=== PATIENT | female | born 1960 | race Caucasian/White ===

== ENCOUNTER 2016-03-08 08:50 | Emergency (ER) | payer OTHER ==
[~2016-03-08] VITALS: Ht 154.9 cm; Wt 73.5 kg
[~2016-03-08 08:50] MED LIST: AMOXICILLIN500 M3 PO; ESCITALOPRAM20 MG PO; FLEXERIL10 MG PO; HYDROCODONE/ACE1 TA1 PO; NATURAL IRON65 MG PO; ONDANSETRON ODT4 MG PO; PANTOPRAZOLE SO40 M1 PO; PANTOPRAZOLE SO40 MG PO; PERCOCET 325 MG1 TA2 PO; REGLAN10 MG PO; TUMS500 MG PO
--- NOTE | 2016-03-08 09:29 | ED DYSPNEA/ASTHMA COMPLAINT ---
History of Present Illness General Chief Complaint: Upper Respiratory Sx/Fever Stated Complaint: COUGH X 2WKS Source: patient Exam Limitations: no limitations Vital Signs & Intake/Output Vital Signs & Intake/Output Vital Signs Date Time Temp Pulse Resp B/P Pulse O2 O2 Flow FiO2 Ox Delivery Rate 03/08 1114 97.0 88 18 122/78 98 Room Air 03/08 1011 97 03/08 0950 95 Room Air 03/08 0853 96.8 100 18 145/94 98 Room Air Allergies Coded Allergies: NO KNOWN ALLERGIES (07/14/11) Reconcile Medications Albuterol Sulfate (Proair Hfa) 90 MCG HFA.AER.AD 2 PUF INH Q4-6 PRN PRN BRONCHITIS Albuterol Sulfate 1.25 MG/3 ML VIAL.NEB 1 Vial INH/ANTONY Q4-6 PRN BRONCHITIS Azithromycin 250 MG TABLET 1 DP PO AD BRONCHITIS 2 the first day followed by 1 for days 2-5 Escitalopram Oxalate 20 MG TAB 1 TAB PO DAILY DEPRESSION (Reported) Methylprednisolone. (Medrol) 4 MG TAB.DS.PK 1 DP PO AD BRONCHITIS 6 on day 1 then reduce by one tablet daily until gone [NEBULIZER MACHINE] 1 U MISCELL 1 U MC PRN PRN BRONCHITIS Pantoprazole Sodium 40 MG TABLET. 1 TAB PO BID HEARTBURN (Reported) Triage Note: 55 Y/0 FEMALE C/O COUGH X 3 WEEKS; NO RELIEF DESPITE MEDICATIONS HER PCP PRESCRIBED. SPEAKING CLEARLY WITH NO RESP DISTRESS NOTED, SAT 96% RA Triage Nurses Notes Reviewed? yes HPI: this patient is a 55-year-old female who presented to the emergency department today for evaluation of persistent cough 1 week. The patient reported that she is coughing up green phlegm. She reported that the cough seems to be getting worse. She reported that it is worse with exertion. She denied any chest pain or trouble breathing. The patient denied any fevers or chills. She reported that she does have vomiting at baseline, but reported that over the last week the vomiting has increased approximately 3 times a day which is nonbloody. The patient denied any nausea or abdominal pain. She denied any chest pain, headaches, visual changes, jaw pain, arm pain, numbness or tingling her extremities, or any coryza symptoms. (GUICHO RAZO,GIUSEPPE) Past History Travel History Traveled to [place] past 21 day No Medical History Any Pertinent Medical History? see below for history Neurological: NONE EENT: NONE Cardiovascular: NONE Respiratory: NONE Gastrointestinal: GERD, hiatal hernia, pacheco's esophagitis. Hepatic: NONE Renal: NONE Musculoskeletal: NONE Psychiatric: anxiety, substance abuse, depression Endocrine: NONE Blood Disorders: anemia Cancer(s): NONE COOKER CASING/Reproductive: NONE History of MRSA: No History of VRE: No History of CDIFF: No Surgical History Surgical History: cricopharyngeal myotomy Psychosocial History Who do you live with Sister What is your primary language Sri Lankan Tobacco Use: Never used Family History Hx Contributory? No (GIUSEPPE LINDO PA-C) Review of Systems Review of Systems Constitutional: Reports: no symptoms. EENTM: Reports: no symptoms. Respiratory: Reports: see HPI. Cardiovascular: Reports: no symptoms. GI: Reports: no symptoms. Genitourinary: Reports: see HPI. Musculoskeletal: Reports: no symptoms. Skin: Reports: no symptoms. Neurological/Psychological: Reports: no symptoms. All Other Systems: Reviewed and Negative (GIUSEPPE LINDO PA-C) Physical Exam Physical Exam Respiratory: SCATTERED EXPIRATORY WHEEZES AND RHONCHI HEARD THROUGHOUT THE UPPER LUNG NOLAN. nO RALES APPRECIATED. nO RESPIRATORY DISTRESS. sPEAKING IN FULL SENTENCES Comments: Well-developed well-nourished person in no acute distress HEENT: Normal EENT exam, head normocephalic, moist mucous membranes. Pupils equally round and reactive to light. Neck: Supple, no lymphadenopathy Back: Antalgic gait Cardiovascular: Regular rate and rhythm with no murmurs, rubs, or gallops Abdomen: Soft, nontender, nondistended Extremity: Normal and equal pulses. Neuro: Alert oriented x3, cranial nerves II through XII grossly intact. Skin: No appreciable rash on exposed skin, skin is warm and dry. Psych: Mood and affect is normal Core Measures ACS in differential dx? Yes Severe Sepsis Present: No Septic Shock Present: No (GIUSEPPE LINDO PA-C) Progress Differential Diagnosis: asthma, AMI, bronchitis, costochondritis, CHF, COPD, musculoskeletal pain, pericarditis, pulmonary embolism, pneumonia, pneumothorax, unstable angina, INFLUENZA, VIRAL SYNDROME, GASTROENTERITIS, gerd Plan of Care: Orders Procedure Date/time Status RAPID VIRAL INFLUENZA A 03/08 947 Complete Diagnostic Imaging: Viewed by Me: Radiology Read. Discussed w/RAD: Radiology Read. CXR Impression: PATIENT: NYDIA HAIR PRESENT AGE: 55 PATIENT ACCOUNT NO: [id number] : 58 LOCATION: [facility] ORDERING PHYSICIAN: GIUSEPPE LINDO PA-C SERVICE DATE: 03/08/16 EXAM TYPE: RAD - XRY-CHEST XRAY, PA AND LATERAL EXAMINATION: XR CHEST CLINICAL INFORMATION: Assess for pneumonia. Cough and shortness of breath. COMPARISON: None. TECHNIQUE: PA and lateral views of the chest were obtained. FINDINGS: The lung nolan are hypoexpanded bilaterally. No focal consolidation is demonstrated. The cardiac silhouette is normal in size. The aortic arch is unfolded. No pleural effusions or pneumothoraces are demonstrated. The central pulmonary vasculature appears normal. There is a dextroscoliosis in the thoracic spine. There are multilevel degenerative changes. IMPRESSION: 1. There are no acute cardiopulmonary findings. DICTATED BY: ELVA ARZOLA MD DATE/TIME DICTATED:03/08/16999 CARPET INSTALLATION SPECIALIST:DAVID DATE/TIME TRANSCRIBED:03/08/16999 CONFIDENTIAL, DO NOT COPY WITHOUT APPROPRIATE AUTHORIZATION. <Electronically signed in Other Vendor System> SIGNED BY: ELVA ARZOLA MD 03/08/16 1007 Initial ED EKG: none (GUICHO RAZO,GIUSEPPE) Departure Departure Disposition: HOME OR SELF CARE Condition: Stable Clinical Impression Primary Impression: Bronchitis Referrals: FERMIN QUINN,ALONZO Garcia (PCP/Family) Additional Instructions: Take antibiotic as prescribed and for its full duration. Take Medrol Dosepak as prescribed. Use nebulizer machine as directed. Use inhaler as directed. Please follow-up with your primary care physician. Return for any worsening symptoms or concerns. Departure Forms: Customer Survey General Discharge Information Prescriptions: Current Visit Scripts Azithromycin 1 DP PO AD #6 TAB 2 the first day followed by 1 for days 2-5 Methylprednisolone. (Medrol) 1 DP PO AD #1 DP 6 on day 1 then reduce by one tablet daily until gone Albuterol Sulfate (Proair Hfa) 2 PUF INH Q4-6 PRN PRN BRONCHITIS #1 INHAL Albuterol Sulfate 1 Vial INH/ANTONY Q4-6 PRN BRONCHITIS #150 ML [NEBULIZER MACHINE] 1 U MC PRN PRN BRONCHITIS #1 U (GUICHO RAZO,GIUSEPPE) PA/HAND BINDERY ASSEMBLY WORKER Co-Sign Statement Statement: ED Attending supervision documentation- [] I saw and evaluated the patient. I have also reviewed all the pertinent lab results and diagnostic results. I agree with the findings and the plan of care as documented in the PA's/HAND BINDERY ASSEMBLY WORKER's documentation. [x] I have reviewed the ED Record and agree with the PA's/HAND BINDERY ASSEMBLY WORKER's documentation. [] Additions or exceptions (if any) to the PAs/HAND BINDERY ASSEMBLY WORKER's note and plan are summarized below: [] (WICHO QUINN,STANLEY) Critical Care Note Critical Care Note Critical Care Time: non-applicable (GUICHO RAZO,GIUSEPPE)
--- NOTE | 2016-03-08 10:07 | RADIOLOGY REPORT ---
EXAMINATION: XR CHEST CLINICAL INFORMATION: Assess for pneumonia. Cough and shortness of breath. COMPARISON: None. TECHNIQUE: PA and lateral views of the chest were obtained. FINDINGS: The lung sommers are hypoexpanded bilaterally. No focal consolidation is demonstrated. The cardiac silhouette is normal in size. The aortic arch is unfolded. No pleural effusions or pneumothoraces are demonstrated. The central pulmonary vasculature appears normal. There is a dextroscoliosis in the thoracic spine. There are multilevel degenerative changes. IMPRESSION: 1. There are no acute cardiopulmonary findings.
[2016-03-08 11:14] VITALS: BP 122/78
[2016-03-08] MEDS ORDERED: AZITHROMYCIN250 M1 PO (11:30)
[2016-03-08] MEDS ORDERED: PROAIR HFA8.5 GM INH (11:30)
[2016-03-08] MEDS ORDERED: NEBULIZER MACHINE MC (11:30)
[2016-03-08] MEDS ORDERED: ALBUTEROL1.25 MG/1 INH/SOL (11:30)
[2016-03-08] MEDS ORDERED: MEDROL4 M2 PO (11:30)
== END 2016-03-08 11:41 ==
LOC: ERH 08:50
DX: J40 Bronchitis, not specified as acute or chronic (principal)
CPT/HCPCS: 1263; 87804; 87804-59; 96372; J2930

== ENCOUNTER 2017-02-19 12:12 | Emergency (ER) | payer OTHER ==
[~2017-02-19] VITALS: Ht 154.9 cm; Wt 71.7 kg
[~2017-02-19 12:12] MED LIST changes: +ALBUTEROL1.25 MG/1 INH/SOL; +AZITHROMYCIN250 M1 PO; +ESCITALOPRAM OX10 MG PO; -ESCITALOPRAM20 MG PO; +MEDROL4 M2 PO; +NEBULIZER MACHINE MC; +PROAIR HFA8.5 GM INH
--- NOTE | 2017-02-19 12:38 | ED GI/GU/ABDOMINAL COMPLAINT ---
History of Present Illness General Chief Complaint: Abdominal Pain/Flank Pain Stated Complaint: ABD PAIN X 3 MONTHS Source: patient, old records Exam Limitations: no limitations Vital Signs & Intake/Output Vital Signs & Intake/Output Vital Signs Date Time Temp Pulse Resp B/P B/P Pulse O2 O2 Flow FiO2 Mean Ox Delivery Rate 02/19 1401 97.9 77 20 116/80 97 Room Air 02/19 1217 97.3 83 20 114/79 98 Room Air Allergies Coded Allergies: NO KNOWN ALLERGIES (07/14/11) Reconcile Medications Alendronate Sodium 35 MG TABLET 1 TAB PO QW BONE (Reported) Atorvastatin Calcium 10 MG TABLET 1 TAB PO DAILY CHOLESTEROL (Reported) Escitalopram Oxalate 10 MG TABLET 1 TAB PO DAILY MENTAL HEALTH (Reported) Fenofibrate Nanocrystallized (Fenofibrate) 145 MG TABLET 1 TAB PO DAILY CHOLESTEROL (Reported) Pantoprazole Sodium 40 MG TABLET.DR 1 TAB PO BID HEARTBURN (Reported) Triage Note: C/O ABDOMINAL CRAMPS X 3 MONTHS. STATES VOMITING X 1 AT NIGHT BUT HAS GERD AND ASSOCIATED THAT WITH THE GERD. STATES DIARRHEA JUST ABOUT EVERYDAY ALSO. DENIES VAGINAL BLEEDING Triage Nurses Notes Reviewed? yes LMP (ages 10-50): 5 YEARS AGO ? N Is pt currently ? No Onset: Gradual Duration: intermittent, X 3 MONTHS Timing: recent history Quality/Severity: aching, cramping Severity Numbers: 4 Location: left lower quadrant, right lower quadrant Radiation: no radiation Activities at Onset: none Prior Abdominal Problems: similar symptoms No Modifying Factors: none Associated Symptoms: DENIES HPI: 56-year-old female history of GERD presents complaining of bilateral lower quadrant abdominal cramping for the past 3 months. Patient states that she intermittently has vomiting at nighttime which she should be Luther her reflux which she's had in the past associated with loose bowel movements intermittently. She states she had a normal bowel movement yesterday, throughout triage note. She states the pain is intermittent in nature, she went to the women[facility] health clinic who advised that she may need an ultrasound however is not follow-up. She denies any pain at this time no nausea no urinary urgency frequency dysuria. Her last menstrual cycles about 5 years ago she denies any abnormal bleeding or discharge. She is not taken anything for her symptoms. She denies anything triggering these episodes of pain there is no symptoms associated with food eating or drinking. The patient states she has been putting heating pads on with improvement in her symptoms (Nestor Roper) Past History Travel History Traveled to [place] past 21 day No Medical History Any Pertinent Medical History? see below for history Neurological: NONE EENT: NONE Cardiovascular: NONE Respiratory: NONE Gastrointestinal: GERD, hiatal hernia, pacheco's esophagitis. Hepatic: NONE Renal: NONE Musculoskeletal: NONE Psychiatric: anxiety, substance abuse, depression Endocrine: NONE Blood Disorders: anemia Cancer(s): NONE SPINNER IRON/Reproductive: NONE History of MRSA: No History of VRE: No History of CDIFF: No Surgical History Surgical History: cricopharyngeal myotomy Psychosocial History Who do you live with Sister What is your primary language Japanese Tobacco Use: Never used ETOH Use: denies use Illicit Drug Use: denies illicit drug use Family History Hx Contributory? No (Nestor Roper) Review of Systems Review of Systems Constitutional: Reports: see HPI. Comments Review of systems: See HPI, All other systems negative. Constitutional, no chills no fever, HEENT: no sore throat no congestion, no ear pain Cardiovascular: No chest pain , no palpitation Skin: no rashes, no change in skin Respiratory: No dyspnea no cough no sputum GI: SEE HPI : No dysuria No hematuria, no frequency Muscle skeletal: No joint pain, no back pain Neurologic: , no headache Psych: No stress Heme/endocrine: No bruising Immunology: No lymphadenopathy (Nestor Roper) Physical Exam Physical Exam General Appearance: well developed/nourished, alert, awake Gastrointestinal: normal bowel sounds, soft, non-tender Comments: Well-developed well-nourished person in no acute distress HEENT: Normal EENT exam; PERRL, EOMI, HEAD is atraumatic. moist mucous membranes. Neck: Supple, normal range of motion Back: Nontender, no CVA tenderness. Full range of motion Cardiovascular: Regular rate and rhythms no murmur Respiratory:No respiratory distress. Patient speaking in full complete sentences. Breath sounds clear to auscultation bilaterally: NO W/R/R Abdomen: Soft, nontender nondistended, no appreciable organomegaly. Normal bowel sounds. No rebound/guarding, No appreciable enlargement of the abdominal aorta, No ascites. Extremity: No edema, full range of motion of extremities Neuro: Alert oriented x3, motor sensory normal, There were no obvious focal neurologic abnormalities. Skin: No appreciable rash on exposed skin, skin is warm and dry. Psych: Mood and affect is normal, memory and judgment is normal. Core Measures ACS in differential dx? No Sepsis Present: No Sepsis Focused Exam Completed? No (Jaylene CHUNG,Nestor) Progress Differential Diagnosis: appendicitis, biliary colic, bowel obstruction, colon cancer, cholecystitis, diverticulitis, gastritis, hepatitis, inflamm bowel dis, ovarian cyst, peptic ulcer, PUD/GERD, perforated viscous, UTI/pyelo, MALIGNANCY Plan of Care: Orders Procedure Date/time Status Add-on Test (ER Only) 02/19 1408 Active CULTURE,URINE 02/19 124 Active URINALYSIS 02/19 124 Complete COMPREHENSIVE METABOLIC PANEL 02/19 124 Complete CBC WITHOUT DIFFERENTIAL 02/19 124 Complete Laboratory Tests 02/19/17 1256: Anion Gap 12, Estimated GFR 51 L, BUN/Creatinine Ratio 16.4, Glucose 95, Calcium 10.1, Total Bilirubin 0.6, AST 37 H, ALT 61 H, Alkaline Phosphatase 102, Total Protein 7.5, Albumin 4.4, Globulin 3.1, Albumin/Globulin Ratio 1.4, CBC w Diff NO MAN DIFF REQ, RBC 4.76, MCV 87.2, MCH 29.7, RDW 14.6 H, MPV 8.4, Gran % 67.4, Lymphocytes % 23.0, Monocytes % 6.4, Eosinophils % 2.4, Basophils % 0.8, Absolute Granulocytes 4.6, Absolute Lymphocytes 1.6, Absolute Monocytes 0.4 , Absolute Eosinophils 0.2, Absolute Basophils 0.1, PUBS MCHC 34.1 02/19/17 1247: Urinalysis LIGHT H, Urine Color YEL, Urine Clarity HAZY H, Urine pH 6.0, Ur Specific Kerrick 1.025, Urine Protein NEG, Urine Ketones TRACE H, Urine Nitrite NEG, Urine Bilirubin NEG, Urine Urobilinogen 1.0, Ur Leukocyte Esterase TRACE H , Ur Microscopic SEDIMENT EXAMINED, Urine RBC RARE, Urine WBC 1-3 H, Ur Epithelial Cells MOD H, Urine Bacteria MANY H, Granular Casts RARE H, Urine Mucus FEW, Urine Hemoglobin NEG, Urine Glucose NEG Microbiology 02/19 1242 URINE ROUT: Urine Culture - RECD Patient declining anything for pain offered labs CAT scan ordered. 1345 discussed with the patient over lab results today pending CAT scan she is again declining anything for pain. 1415 I discussed with the patient her CAT scan findings she is remained asymptomatic here while here waiting she was able to get an appointment for an ultrasound tomorrow with her [facility]. I discussed with her that she may need to follow-up with a GI doctor for possible colonoscopy. The symptoms are intermittent over the past 3 months she is nontoxic. Labs are unremarkable. Return precautions were discussed at length she has nausea medicine at home. She feels comfortable with plan. Diagnostic Imaging: Viewed by Me: CT Scan. Discussed w/RAD: CT Scan. Radiology Impression: PATIENT: NYDIA HAIR PRESENT AGE: 56 PATIENT ACCOUNT NO: [id number] : 58 LOCATION: [facility] ORDERING PHYSICIAN: Nestor CHUNG SERVICE DATE: 02/19/17 EXAM TYPE: CAT - CT ABD & PELVIS W/O IV CONTRAS EXAMINATION: CT ABDOMEN AND PELVIS WITHOUT CONTRAST CLINICAL INFORMATION: Bilateral lower quadrant abdominal pain. Assess for ovarian cyst. COMPARISON: Gastric emptying study, upper GI series 12/06/[address] scan of the abdomen and pelvis 12/24/2014. TECHNIQUE: Multidetector volumetric imaging was performed from the superior aspect of the liver through the pubic symphysis. Sagittal and coronal reformatted images were obtained on the technologist's workstation. DLP: 667.09 mGy-cm FINDINGS: LUNG BASES: The visualized lung bases are unremarkable. LIVER, GALLBLADDER, AND BILIARY TREE: The liver is normal in size and shape. It has diffusely low attenuation consistent with hepatic steatosis, which was demonstrated on prior imaging. There are no focal hepatic lesions and the intrahepatic ducts are not dilated. The gallbladder is contracted. There is no evidence of radiopaque gallstones, gallbladder wall thickening, or obvious pericholecystic inflammatory changes. PANCREAS: Unremarkable. SPLEEN: The spleen is normal in size and density. There is a small splenule at the attending hilum. ADRENAL GLANDS: The adrenal glands are not enlarged. KIDNEYS AND URETERS: The kidneys are normal in size, shape, and attenuation. No hydronephrosis, hydroureter, or calculi seen. No perinephric stranding. BLADDER: The bladder is decompressed. GASTROINTESTINAL TRACT: The study redemonstrates a moderate hiatal hernia. There is debris within the stomach. The small bowel loops appear normal. There is fat at the ileocecal junction. The appendix is again noted to be normal. There is mild stool within the large bowel and rectum. ABDOMINAL WALL: No significant hernia is appreciated. LYMPH NODES: There is no pelvic or abdominal lymphadenopathy. There are multiple small mesenteric and celiac lymph nodes. VASCULAR: There are atheromatous calcifications. No aneurysms are demonstrated. PELVIC VISCERA: The uterus is anteverted. It is not enlarged. There is no free fluid in the pelvis. No masses are demonstrated. OSSEOUS STRUCTURES: There are multilevel degenerative changes in the lumbar spine. There is a sigmoid scoliosis in the thoracolumbar spine, convex to the right superiorly into the left inferiorly. There are no suspicious lytic or sclerotic foci. The sacroiliac joints are intact. IMPRESSION: 1. The study redemonstrates the moderate hiatal hernia and hepatic steatosis. The appendix appears normal. 2. No masses, free fluid or cysts are demonstrated in the pelvis. DICTATED BY: Rk Kinney MD DATE/TIME DICTATED:02/19/171351 SECURITY VEHICLE PATROL OFFICER:DAVID DATE/TIME TRANSCRIBED:1351 CONFIDENTIAL, DO NOT COPY WITHOUT APPROPRIATE AUTHORIZATION. < Electronically signed in Other Vendor System> SIGNED BY: Rk Kinney MD 1406 Initial ED EKG: none (Nestor Roper) Departure Departure Time of Disposition: 1411 Disposition: HOME OR SELF CARE Condition: Stable Clinical Impression Primary Impression: Abdominal pain Referrals: Doris QUINN,Sonali Villalobos APRN (PCP/Family) Additional Instructions: Follow-up with your primary care physician this week regarding your pain as well as spring upholsterer dr mann. Patterson diet no fatty spicy greasy foods. Return to the emergency room anytime sooner with any concerns. Departure Forms: Customer Survey General Discharge Information (Nestor Roper) PA/PHOTOGRAPHIC MACHINE OPERATOR Co-Sign Statement Statement: ED Attending supervision documentation- [] I saw and evaluated the patient. I have also reviewed all the pertinent lab results and diagnostic results. I agree with the findings and the plan of care as documented in the PA's/PHOTOGRAPHIC MACHINE OPERATOR's documentation. [X] I have reviewed the ED Record and agree with the PA's/PHOTOGRAPHIC MACHINE OPERATOR's documentation. [] Additions or exceptions (if any) to the PAs/PHOTOGRAPHIC MACHINE OPERATOR's note and plan are summarized below: [] (Santos QUINN,Vignesh Kauffman)
[2017-02-19 13:04] LABS: ABSOLUTE BASOPHIL COUNT 0.1 /CUMM (0.0-0.2); ABSOLUTE EOSINOPHIL COUNT 0.2 /CUMM (0.0-0.7); ABSOLUTE GRANULOCYTE CT 4.6 /CUMM (1.4-6.5); ABSOLUTE LYMPH COUNT 1.6 /CUMM (1.2-3.4); ABSOLUTE MONOCYTE COUNT 0.4 /CUMM (0.10-0.60); BASOPHIL % 0.8 % (0.0-2.0); EOSINOPHIL % 2.4 % (0-5); GRANULOCYTE % 67.4 % (42.2-75.2); HEMATOCRIT 41.5 % (37-47); MEAN CORPUSCULAR HGB 29.7 PG (27.0-31.0); MEAN CORPUSCULAR HGB CONC 34.1 G/DL (33.0-37.0); MEAN CORPUSCULAR VOLUME 87.2 FL (81.0-99.0); MEAN PLATELET VOLUME 8.4 FL (7.4-10.4); PLATELET COUNT 286 /CUMM (130-400); RBC DISTRIBUTION WIDTH 14.6 % (11.5-14.5); RED BLOOD CELL CT 4.76 /CUMM (4.20-5.40); WHITE BLOOD CELL COUNT 6.8 /CUMM (4.8-10.8)
[2017-02-19] MEDS ORDERED: FENOFIBRATE145 M1 PO (13:12)
[2017-02-19] MEDS ORDERED: ATORVASTATIN CA10 M1 PO (13:13)
[2017-02-19] MEDS ORDERED: ALENDRONATE SOD35 M2 PO (13:13)
[2017-02-19 14:01] VITALS: BP 116/80
--- NOTE | 2017-02-19 14:06 | CT SCAN REPORT ---
EXAMINATION: CT ABDOMEN AND PELVIS WITHOUT CONTRAST CLINICAL INFORMATION: Bilateral lower quadrant abdominal pain. Assess for ovarian cyst. COMPARISON: Gastric emptying study, upper GI series 12/06/[address] scan of the abdomen and pelvis 12/24/2014. TECHNIQUE: Multidetector volumetric imaging was performed from the superior aspect of the liver through the pubic symphysis. Sagittal and coronal reformatted images were obtained on the technologist's workstation. DLP: 667.09 mGy-cm FINDINGS: LUNG BASES: The visualized lung bases are unremarkable. LIVER, GALLBLADDER, AND BILIARY TREE: The liver is normal in size and shape. It has diffusely low attenuation consistent with hepatic steatosis, which was demonstrated on prior imaging. There are no focal hepatic lesions and the intrahepatic ducts are not dilated. The gallbladder is contracted. There is no evidence of radiopaque gallstones, gallbladder wall thickening, or obvious pericholecystic inflammatory changes. PANCREAS: Unremarkable. SPLEEN: The spleen is normal in size and density. There is a small splenule at the attending hilum. ADRENAL GLANDS: The adrenal glands are not enlarged. KIDNEYS AND URETERS: The kidneys are normal in size, shape, and attenuation. No hydronephrosis, hydroureter, or calculi seen. No perinephric stranding. BLADDER: The bladder is decompressed. GASTROINTESTINAL TRACT: The study redemonstrates a moderate hiatal hernia. There is debris within the stomach. The small bowel loops appear normal. There is fat at the ileocecal junction. The appendix is again noted to be normal. There is mild stool within the large bowel and rectum. ABDOMINAL WALL: No significant hernia is appreciated. LYMPH NODES: There is no pelvic or abdominal lymphadenopathy. There are multiple small mesenteric and celiac lymph nodes. VASCULAR: There are atheromatous calcifications. No aneurysms are demonstrated. PELVIC VISCERA: The uterus is anteverted. It is not enlarged. There is no free fluid in the pelvis. No masses are demonstrated. OSSEOUS STRUCTURES: There are multilevel degenerative changes in the lumbar spine. There is a sigmoid scoliosis in the thoracolumbar spine, convex to the right superiorly into the left inferiorly. There are no suspicious lytic or sclerotic foci. The sacroiliac joints are intact. IMPRESSION: 1. The study redemonstrates the moderate hiatal hernia and hepatic steatosis. The appendix appears normal. 2. No masses, free fluid or cysts are demonstrated in the pelvis.
== END 2017-02-19 14:24 ==
LOC: ERH 12:12
PROVIDERS: Physician Assistant Medical
DX: R10.32 Left lower quadrant pain (principal); R10.31 Right lower quadrant pain
CPT/HCPCS: 74176; 81001; 87086